=== PATIENT | male | born 2000 | race Two or more races ===

== ENCOUNTER 2024-03-08 00:15 | Emergency (ER) | payer OTHER ==
[~2024-03-08] VITALS: Ht 152.4 cm; Wt 59.0 kg
[2024-03-08 01:24] LABS: Urine Bacteria None Seen /hpf (None Seen)
[2024-03-08 01:26] LABS: Basophils # (auto) 0 10 ^3/uL (0-0.2); Basophils % (auto) 0.6 % (0.0-2.0); Eosinophils # (auto) 0.1 10 ^3/uL (0-0.8); Eosinophils % (auto) 2.3 % (0.0-7.0); Hematocrit 46.4 % (41.0-53.0); Hemoglobin 15.5 g/dL (13.5-17.5); Lymphocytes % (auto) 31.5 % (10.0-50.0); Mean Corpuscular Hemoglobin 28.2 pg (28.0-32.0); Mean Corpuscular Hgb Conc. 33.3 g/dL (32.0-36.0); Mean Corpuscular Volume 84.8 fL (80.0-100.0); Monocytes # (auto) 0.5 10 ^3/uL (0-1.3); Monocytes % (auto) 8.1 % (0.0-12.0); Neutrophils # (auto) 3.7 10 ^3/uL (1.6-8.6); Neutrophils % (auto) 57.5 % (37.0-80.0); Nucleated Red Blood Cells % 0.1 %; Platelet Count (auto) 381 10^3/uL (140-450); Red Blood Cells 5.48 10^6/uL (4.5-5.90); Red Cell Distribution Width 14.7 % (11.8-14.3); White Blood Cell 6.5 10^3/uL (4.4-10.8)
[2024-03-08 01:51] LABS: Cannabinoid Screen, Urine Neg (NEGATIVE)
[2024-03-08 01:52] LABS: Alanine Aminotransferase 18 U/L (7-40); Alkaline Phosphatase 76 U/L (46-116); Anion Gap 13 (5-15); Aspartate Aminotransferase 20 U/L (13-40); BUN/Creatinine Ratio 10.7 (10.0-20.0); Blood Alcohol 71.1 mg/dL (<10); Calcium 10.3 mg/dL (8.7-10.4); Carbon Dioxide 20 mmol/L (20-31); Glucose 96 mg/dL (74-106); Sodium 141 mmol/L (136-145)
[2024-03-08 01:53] LABS: Bilirubin, Total 0.4 mg/dL (0.2-1.0); Total Protein 7.9 g/dL (5.7-8.2)
[2024-03-08 01:54] LABS: Urine Blood Negative /uL (Negative); Urine Budding Yeast MODERATE /hpf (None Seen); Urine Clarity Turbid (Clear); Urine Protein, UAD Negative (Negative); Urine Specific Gravity 1.004 (1.001-1.035); Urine Squamous Epithelial Cell MANY /hpf (<5); Urine Urobilinogen Normal (Negative); Urine WBC 2 /hpf (0 - 3); Urine pH 5.5 (5.0-9.0)
[2024-03-08 02:14] LABS: Amphetamine Screen, Urine Neg (NEGATIVE); Barbiturate Scree,Urine Neg (NEGATIVE); Benzodiazephine Screen, Urine Neg (NEGATIVE); Cocaine Screen, Urine Neg (NEGATIVE); Opiate Scree,Urine Neg (NEGATIVE); Phencyclidine Screen, Urine Neg (NEGATIVE)
[2024-03-08 02:14] LABS: Albumin 4.9 g/dL (3.2-4.8); Blood Urea Nitrogen 8 mg/dL (9-23); Chloride 108 mmol/L (98-107); Potassium 3.4 mmol/L (3.5-5.1)
[2024-03-08 02:15] LABS: Acetaminophen < 2.0 UG/ML (10.0-20.0); Salicylate < 3.0 mg/dL (-30)
[2024-03-08 02:27] LABS: Urine Color STRAW (Yellow)
--- NOTE | 2024-03-08 02:58 | ED.PDOC ---
Psychiatric HPI Comments 23-year-old male brought in by friend for suicidal ideation. Patient admits to drinking etoh and using marijuana and mushrooms regularly. Pt states he has history of depression and psychosis and has not been taking his medications since he does not want to stop drinking alcohol. Has been drinking alcohol prior to coming to the ER. He has been having thoughts of harming himself recently by overdosing on pills. Denies any prior suicide attempts despite having cut rendon on his forearms/ wrists. States he has been hearing voices telling him to harm himself. Denies any visual hallucinations. Chief Complaint: Suicidal Time Seen by MD: 02:56 Reviewed Notes: Nurses Notes Information Source: Patient Mode of Arrival: EMS Severity: Unable to Care for Self, Unable to Control Self Severity of Pain: Moderate Severity of Mental Status: Moderate Severity of Symptoms: Moderate Timing: Hours Duration: Since onset Prehospital treatment: None Presents with: Depression, Anxiety, Unclear Thinking, Suicidal Ideation Circumstance: Medical Clearance, Causing a Disturbance Current substance abuse: ETOH Stressors: Relationships History of: Depression, Alcoholism, Substance Abuse Quality: Hallucinations Associated signs and symptoms: Depression, Hopeless, Anxiety, Hallucinations, ETOH Past Medical History PAST MEDICAL HISTORY: Depression Past Medical History (Other): Partial blindness Surgical History: Denies all surgeries Family History Family History: Reviewed,noncontributory to illness Social History Smoker: Non-Smoker Alcohol: Heavy Drugs: Marijuana, Other (Mushrooms) Lives In: Home Constitutional: denies: chills, diaphoresis, fatigue, fever, malaise, sweats, weakness, others EENTM: denies: blurred vision, double vision, ear bleeding, ear discharge, ear drainage, ear pain, ear ringing, eye pain, eye redness, hearing loss, mouth pain, mouth swelling, nasal discharge, nose bleeding, nose congestion, nose pain, photophobia, tearing, throat pain, throat swelling, voice changes, others Respiratory: denies: cough, hemoptysis, orthopnea, SOB at rest, shortness of breath, SOB with excertion, stridor, wheezing, others Cardiovascular: denies: chest pain, dizzy spells, diaphoresis, Dyspnea on exertion, edema, irregular heart beat, left arm pain, lightheadedness, palpitations, PND, syncope, others Gastrointestinal: denies: abdomen distended, abdominal pain, blood streaked bowels, constipated, diarrhea, dysphagia, difficulty swallowing, hematemesis, melena, nausea, poor appetite, poor fluid intake, rectal bleeding, rectal pain, vomiting, others Genitourinary: denies: burning, dysuria, flank pain, frequency, hematuria, incontinence, penile discharge, penile sore, pain, testicle pain, testicle swelling, urgency, others Neurological: denies: dizziness, fainting, headache, left sided numbness, left sided weakness, numbness, paresthesia, pre-existing deficit, right sided numbness, right sided weakness, seizure, speech problems, tingling, tremors, weakness, others Musculoskeletal: denies: back pain, gout, joint pain, joint swelling, muscle pain, muscle stiffness, neck pain, others Integumetry: denies: bruises, change in color, change in hair/nails, dryness, laceration, lesions, lumps, rash, wounds, others Allergic/Immunocompromised: denies: Difficulty Healing, Frequent Infections, Hi ves, Itching, others Hematologic/Lymphatic: denies: anemia, blood clots, easy bleeding, easy bruising, swollen glands, others Endocrine: denies: excessive hunger, excessive sweating, excessive thirst, excessive urination, flushing, intolerance to cold, intolerance to heat, unexplained weight gain, unexplained weight loss, others Psychiatric: reports: anxiety, depression, suicidal; denies: bipolar disorder, hopeless, panic disorder, schizophrenia, sleepless, others Physical Exam General Appearance: No Apparent Distress HEENT: Other (Moist mucous membranes) Neck: Full Range of Motion, Normal Inspection Respiratory: Lungs Clear, No Accessory Muscle Use, No Respiratory Distress, Normal Breath Sounds Cardiovascular: No Edema, No JVD, Regular Rate/Rhythm Breast Exam: Deferred Gastrointestinal: Non Tender, Soft Genitalia: Deferred Pelvic: Deferred Rectal: Deferred Extremities: Normal range of motion, Non-tender, No pedal edema Neurologic: Alert (Oriented x4), Other (Depressed mood, blunt affect. Moves all extremities with adequate strength and tone. No gross focal deficit.) Cerebellar Function: NOT DONE Reflexes: NOT DONE Skin: Dry, Normal Color, Warm Lymphatic: NOT DONE Was a procedure done? Was a procedure done?: No Psych Differential Dx Psych. Differential Dx: Anxiety, Depression, Hopeless, Panic Disorder, Schizoprenia, Suicidal OD Differential Dx: Alcohol Abuse, Hallucinations, Personality Disorder, Substance Abuse, Suicidal Attempt, Suicidal Gesture Suicidal Differential Dx: Alcohol Abuse, Depression, Schizoprenia, Substance Abuse Intoxication Differential Dx: Hallucinations, Drug-Induced Psychosis, Encephalopathy, Intoxication, Medical Noncompliance, Substance Abuse Disorder X-Ray, Labs, Meds, VS Vital Signs Date Time Temp Pulse Resp B/P (MAP) Pulse Ox O2 Delivery O2 Flow Rate FiO2 03/08/24 02:19 103 22 114/73 (87) 99 03/08/24 00:15 97.9 120 22 132/92 (105) 96 Lab Test 03/08/24 01:05 03/08/24 00:52 Range/Units White Blood Count 6.5 4.4-10.8 10^3/uL Red Blood Count 5.48 4.5-5.90 10^6/uL Hemoglobin 15.5 13.5-17.5 g/dL Hematocrit 46.4 41.0-53.0 % Mean Corpuscular Volume 84.8 80.0-100.0 fL Mean Corpuscular Hemoglobin 28.2 28.0-32.0 pg Mean Corpuscular Hemoglobin Concent 33.3 32.0-36.0 g/dL Red Cell Distribution Width 14.7 H 11.8-14.3 % Platelet Count 381 140-450 10^3/uL Mean Platelet Volume 7.7 6.9-10.8 fL Neutrophils (%) (Auto) 57.5 37.0-80.0 % Lymphocytes (%) (Auto) 31.5 10.0-50.0 % Monocytes (%) (Auto) 8.1 0.0-12.0 % Eosinophils (%) (Auto) 2.3 0.0-7.0 % Basophils (%) (Auto) 0.6 0.0-2.0 % Neutrophils # (Auto) 3.7 1.6-8.6 10 ^3/uL Lymphocytes # (Auto) 2.0 0.4-5.4 10 ^3/uL Monocytes # (Auto) 0.5 0-1.3 10 ^3/uL Eosinophils # (Auto) 0.1 0-0.8 10 ^3/uL Basophils # (Auto) 0 0-0.2 10 ^3/uL Nucleated Red Blood Cells 0.1 % Sodium Level 141 136-145 mmol/L Potassium Level 3.4 L 3.5-5.1 mmol/L Chloride Level 108 H 98-107 mmol/L Carbon Dioxide Level 20 20-31 mmol/L Anion Gap 13 5-15 Blood Urea Nitrogen 8 L 9-23 mg/dL Creatinine 0.75 0.700-1.30 mg/dL Glomerular Filtration Rate Calc 132 >90 mL/min BUN/Creatinine Ratio 10.7 10.0-20.0 Serum Glucose 96 74-106 mg/dL Calcium Level 10.3 8.7-10.4 mg/dL Total Bilirubin 0.4 0.2-1.0 mg/dL Aspartate Amino Transferase (AST) 20 13-40 U/L Alanine Aminotransferase (ALT) 18 7-40 U/L Alkaline Phosphatase 76 46-116 U/L Total Protein 7.9 5.7-8.2 g/dL Albumin 4.9 H 3.2-4.8 g/dL Salicylates Level < 3.0 -30 mg/dL Acetaminophen Level < 2.0 L 10.0-20.0 UG/ML Plasma/Serum Blood Alcohol 71.1 H <10 mg/dL Urine Color Straw Yellow Urine Clarity Turbid H Clear Urine pH 5.5 5.0-9.0 Urine Specific [place] 1.004 1.001-1.035 Urine Protein Negative Negative Urine Ketones Negative Negative Urine Blood Negative Negative /uL Urine Nitrite Negative Negative Urine Bilirubin Negative Negative Urine Urobilinogen Normal Negative mg/dL Urine Leukocyte Esterase Negative Negative /uL Urine RBC None seen 0 - 3 /hpf Urine WBC 2 0 - 3 /hpf Urine Squamous Epithelial Cells Many <5 /hpf Urine Bacteria None seen None Seen /hpf Urine Yeast (Budding) Moderate None Seen /hpf Urine Glucose Normal Normal mg/dL Urine Opiates Screen Neg NEGATIVE Urine Fentanyl Screen Neg NEGATIVE Urine Barbiturates Screen Neg NEGATIVE Urine Phencyclidine Screen Neg NEGATIVE Urine Amphetamines Screen Neg NEGATIVE Urine Benzodiazepines Screen Neg NEGATIVE Urine Cocaine Screen Neg NEGATIVE Urine Cannabinoids Screen Neg NEGATIVE Current Medications Medications (Trade) Dose Ordered Sig/Augustine Route Start Time Stop Time Status Last Admin Potassium Chloride (Klor-Con Tablet) 40 meq ONCE ONCE PO 03/08/24 04:15 03/08/24 04:16 DC 03/08/24 04:30 X-Ray, Labs, Meds, VS Comment 23-year-old male with a history of depression and psychosis, noncompliant with psychiatric medications, brought in by friend for evaluation of suicidal ideation with plans to overdose. Also states he is hearing voices telling him to hurt himself . Vitals remarkable for heart rate 120, respiratory rate 22 Exam remarkable for depressed mood, blunt affect Rhythm strip independently interpreted by me: Sinus tach, rate 110, no ectopy. CBC, CMP, Tylenol, salicylate, alcohol level and drug screen unremarkable for any abnormality of acute significance except for potassium of 3.4 Patient treated with the following in the ED: KCl 40 mEq p.o. Patient is medically cleared as of 420. Tele psych consult has been ordered. Disposition will be per tele psych recommendations. Patient endorsed to the oncoming ED physician Dr. Wood at 6:00 a.m. pending psychiatric evaluation. Time of 1ST Reevaluation: 02:50 Reevaluation 1ST: Unchanged Patient Education/Counseling: Diagnosis, Treatment Family Education/Counseling: No Family Present Departure 1 Departure Time of Disposition: 06:00 Impression: Primary Impression: Depression with suicidal ideation Additional Impression: Auditory hallucinations Disposition: 30 STILL A PATIENT Condition: Stable Critical Care Note Critical Care Time?: No Stability Stability form required: No Heart Score Heart Score: Heart Score Response (Comments) Value History N/A 0 EKG N/A 0 Age N/A 0 Risk Factors N/A 0 Troponin N/A 0 Total 0 I personally scribed for TEMO JON MD ([facility]) on 03/08/24 at 02:58. Electronically submitted by Wilson Son ([facility]). TEMO JON MD Mar 08, 2024 02:58
[2024-03-08] MEDS: POTASSIUM CHL 20 Meq TABLET PO ONE (04:30)
[2024-03-08] MEDS ORDERED: ESCI10TA PO (09:33)
[2024-03-08] MEDS ORDERED: OLAN5TAB4 PO (09:34)
--- NOTE | 2024-03-08 09:34 | DVHINCON2 ---
Date of Service if different f: Mar 08, 2024 Time of Service: 08:56 Consultation ([facility]) Consulting Physician: CAM MONROY MD Labs Laboratory Tests Test 03/08/24 00:52 03/08/24 01:05 Urine Color Straw (Yellow) Urine Clarity Turbid (Clear) Urine pH 5.5 (5.0-9.0) Urine Specific [place] 1.004 (1.001-1.035) Urine Protein Negative (Negative) Urine Ketones Negative (Negative) Urine Blood Negative /uL (Negative) Urine Nitrite Negative (Negative) Urine Bilirubin Negative (Negative) Urine Urobilinogen Normal mg/dL (Negative) Urine Leukocyte Esterase Negative /uL (Negative) Urine RBC None seen /hpf (0 - 3) Urine WBC 2 /hpf (0 - 3) Urine Squamous Epithelial Cells Many /hpf (<5) Urine Bacteria None seen /hpf (None Seen) Urine Yeast (Budding) Moderate /hpf (None Seen) Urine Glucose Normal mg/dL (Normal) Urine Opiates Screen Neg (NEGATIVE) Urine Fentanyl Screen Neg (NEGATIVE) Urine Barbiturates Screen Neg (NEGATIVE) Urine Phencyclidine Screen Neg (NEGATIVE) Urine Amphetamines Screen Neg (NEGATIVE) Urine Benzodiazepines Screen Neg (NEGATIVE) Urine Cocaine Screen Neg (NEGATIVE) Urine Cannabinoids Screen Neg (NEGATIVE) White Blood Count 6.5 10^3/uL (4.4-10.8) Red Blood Count 5.48 10^6/uL (4.5-5.90) Hemoglobin 15.5 g/dL (13.5-17.5) Hematocrit 46.4 % (41.0-53.0) Mean Corpuscular Volume 84.8 fL (80.0-100.0) Mean Corpuscular Hemoglobin 28.2 pg (28.0-32.0) Mean Corpuscular Hemoglobin Concent 33.3 g/dL (32.0-36.0) Red Cell Distribution Width 14.7 % (11.8-14.3) Platelet Count 381 10^3/uL (140-450) Mean Platelet Volume 7.7 fL (6.9-10.8) Neutrophils (%) (Auto) 57.5 % (37.0-80.0) Lymphocytes (%) (Auto) 31.5 % (10.0-50.0) Monocytes (%) (Auto) 8.1 % (0.0-12.0) Eosinophils (%) (Auto) 2.3 % (0.0-7.0) Basophils (%) (Auto) 0.6 % (0.0-2.0) Neutrophils # (Auto) 3.7 10 ^3/uL (1.6-8.6) Lymphocytes # (Auto) 2.0 10 ^3/uL (0.4-5.4) Monocytes # (Auto) 0.5 10 ^3/uL (0-1.3) Eosinophils # (Auto) 0.1 10 ^3/uL (0-0.8) Basophils # (Auto) 0 10 ^3/uL (0-0.2) Nucleated Red Blood Cells 0.1 % Sodium Level 141 mmol/L (136-145) Potassium Level 3.4 mmol/L (3.5-5.1) Chloride Level 108 mmol/L (98-107) Carbon Dioxide Level 20 mmol/L (20-31) Anion Gap 13 (5-15) Blood Urea Nitrogen 8 mg/dL (9-23) Creatinine 0.75 mg/dL (0.700-1.30) Glomerular Filtration Rate Calc 132 mL/min (>90) BUN/Creatinine Ratio 10.7 (10.0-20.0) Serum Glucose 96 mg/dL (74-106) Calcium Level 10.3 mg/dL (8.7-10.4) Total Bilirubin 0.4 mg/dL (0.2-1.0) Aspartate Amino Transf (AST/SGOT) 20 U/L (13-40) Alanine Aminotransferase (ALT/SGPT) 18 U/L (7-40) Alkaline Phosphatase 76 U/L (46-116) Total Protein 7.9 g/dL (5.7-8.2) Albumin 4.9 g/dL (3.2-4.8) Salicylates Level < 3.0 mg/dL (-30) Acetaminophen Level < 2.0 UG/ML (10.0-20.0) Plasma/Serum Blood Alcohol 71.1 mg/dL (<10) Appearance: Stated age Psychomotor activity: WNL, Calm Behavioral: Cooperative Eye contact: Appropriate Speech: WNL Affect: Appropriate, Mood Congruent Mood: Depressed Thought processes: Linear/Goal-directed Thought content: WNL Suicidal ideations: Absent Homicidal ideations: Absent Orientation: Person, Place, Time, Situation Memory intact: Recent Intellect: Average Abstractability: WNL Concentration: Adequate Attention: Adequate Judgement: WNL Insight: Fair Vitals Vital Signs Date Time Temp Pulse Resp B/P (MAP) Pulse Ox O2 Delivery O2 Flow Rate FiO2 03/08/24 02:19 103 22 114/73 (87) 99 03/08/24 00:15 97.9 Treatment plan discussed: With staff Medication adjusted: Yes Labs ordered: No Psychotherapy provided: Yes Type: Voluntary History of Present Illness Reason for Consult :psychiatric evaluation for suicidal ideation PER ED PHYSICIAN: 23-year-old male brought in by friend for suicidal ideation. Patient admits to drinking etoh and using marijuana and mushrooms regularly. Pt states he has history of depression and psychosis and has not been taking his medications since he does not want to stop drinking alcohol. Has been drinking alcohol prior to coming to the ER. He has been having thoughts of harming himself recently by overdosing on pills. Denies any prior suicide attempts despite having cut rendon on his forearms/ wrists. States he has been hearing voices telling him to harm himself. Denies any visual hallucinations. PSYCHIATRIST HPI: The patient was seen and evaluated at [facility] ED via telepsychiatry platform. 23 yr old male reported his partner called 911 last night because "he was scared that I was in danger to myself." The patient had told his partner that he doesn't want to be alive. He said that he "always feels suicidal thoughts" but said it gets worse in the winter and fall. He stated he has had some delusional thinking in the past during depressive episodes so had been on zyprexa as well as lexapro and felt that the combination worked well for him. He stated that he stopped the medications after a month or two, because he was told that he couldn't drink while on the medications. He noted that he felt the medications helped his depression and is open to starting it. He stated that several months ago, he was drinking fairly heavily and would wake up and start drinking then continue drinking throughout the day. He noted that his partner talked to him about this and he changed his drinking behavior so he no longer drinks hard liquor and will have 2-3 seltzers about 3-4 days a week and no longer drinks daily. He reported he no longer has suicidal ideation, plan or intent. He called his outpatient psychiatrist yesterday and scheduled an appointment which isn't until April. He feels comfortable returning home and is open to starting medications. He denied having HI/AVH. Past Psychiatric History : Diagnosed with depression. He was prescribed lexapo and zyprexa, but stopped taking them in April 2023. Has appointment scheduled with outpatient psychiatrist on 05/09/24. 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 Currently drinks about 3-4 days, drinking about 3 big seltzers in the evening. MJ-frequent use but not daily. Mushroom use about once or twice a month. Denied other drug use. Social History : Lives in [place] with boyfriend. They have been together 1.5 years. Had some issues due to the alcohol use. DIAGNOSIS: UNSPECIFIED DEPRESSIVE DISORDer Formulation: This 25 yr old male appears to suffer from depression which had some delusional component in the past and is more seasonal (fall/winter). He does not warrant hospialization, but may benefit from starting Lexapro and Zyprexa while awaiting his outpatient psychiatry appointment. Plan: 1. Safety. The patient is a low risk for suicide and may be managed as an outpatient. 2. Legal-voluntary. 3. Medications: risks, benefits, adverse effects of the following were discussed and recommend giving a prescription for 30 days and one refill of: Lexapro 10mg qam Zyprexa 5mg qhs 4. Follow up with outpatient mental health for medication management and therapy. 5. Case discussed with ED physician. 6. Please recontact psychiatry for further follow up or reevaluation. Assessment/Diagnosis/Plan Reviewed: Labs, Medications, Previous Orders CAM MONROY MD Mar 08, 2024 08:56
[2024-03-08 09:41] VITALS: BP 151/87; TEMP 98.7
[2024-03-08 09:58] VITALS: PULSE 87; RESP 17; O2SAT 99
== END 2024-03-08 10:01 | disposition home or self-care (01) ==
LOC: EDBD 00:15 → ER 00:15
DX: R45.851 Suicidal ideations (principal); F32.A Depression, unspecified; R44.0 Auditory hallucinations; F15.90 Other stimulant use, unspecified, uncomplicated; F10.10 Alcohol abuse, uncomplicated
CPT/HCPCS: 36415; 80053; 80307; 80320; 80329; 81001; 85025